=== PATIENT | female | born 1935 | race Caucasian/White ===

== ENCOUNTER → 2017-04-18 | Outpatient (CLI) | payer MEDICARE, BC | LOC: MC.RAD 10:55 | DX: Z12.31 Encounter for screening mammogram for malignant neoplasm of breast (principal); N63.11 Unspecified lump in the right breast, upper outer quadrant ==

== ENCOUNTER → 2017-04-27 | Outpatient (CLI) | payer MEDICARE, BC | LOC: MC.RAD 12:57 | DX: N63.10 Unspecified lump in the right breast, unspecified quadrant (principal) ==

== ENCOUNTER 2017-09-17 15:20 | Observation (INO) | payer MEDICARE, BC ==
[~2017-09-17] VITALS: Ht 170.3 cm; Wt 91.6 kg
[2017-09-17 15:47] LABS: BASO % 0.5 % (0.0-2.0); EOS # 0.2 (0.0-0.7); EOS % 2.5 % (0-4.0); GRAN # 3.6 (1.4-6.5); GRAN % 55.4 % (42.2-75.2); HEMATOCRIT 40.4 % (37.0-47.0); HEMOGLOBIN 13.5 g/dl (12.5-16.0); LYMPH # 2.2 (1.2-3.4); LYMPH % 34.1 % (20.0-51.0); MEAN CELL VOLUME 83 fl (80.0-100.0); MEAN CORPUSCULAR HEMOGLOBIN 28 pg (27.0-31.0); MEAN CORPUSCULAR HGB CONC 33 g/dl (33.0-37.0); MEAN PLATELET VOLUME 9.6 fl (7.4-10.4); MONO # 0.5 (0.1-0.6); MONO % 7.2 % (1.7-9.3); PLATELET COUNT 220 K/mm3 (130-400); RED BLOOD COUNT 4.86 M/mm3 (4.10-5.30); REDCELL DISTRIBUTION WIDTH-CV 13.7 % (11.5-14.5)
[2017-09-17 16:04] LABS: ALANINE AMINOTRANSFERASE 25 U/L (9-52); ALBUMIN 4.1 gm/dL (3.5-5.0); ALKALINE PHOSPHATASE 66 U/L (50-136); ANION GAP 12 mmol/L (7-16); AST,SGOT 29 U/L (15-37); BILIRUBIN,TOTAL 0.4 mg/dL (0.0-1.0); BLOOD UREA NITROGEN 13 mg/dL (7-17); CALCIUM 9.7 mg/dL (8.4-10.2); CARBON DIOXIDE 27 mmol/L (22-30); CHLORIDE 103 mmol/L (98-107); CREATININE, serum 0.81 mg/dL (0.52-1.25); GLUCOSE 103 mg/dL (74-106); POTASSIUM 3.7 mmol/L (3.4-5.0); SODIUM 142 mmol/L (137-145); TOTAL PROTEIN 7.5 gm/dL (6.4-8.2)
[2017-09-17 16:19] LABS: TROPONIN-I < 0.012 ng/mL (0.000-0.034)
[2017-09-17] MEDS ORDERED: ASPIRIN 81M81 MG/TA2 PO (16:45)
[2017-09-17] MEDS ORDERED: CALCIUM CARB W/1 TA1 PO (18:01)
[2017-09-17] MEDS ORDERED: LEVOXYL0.05 MG PO (18:01)
[2017-09-17] MEDS ORDERED: HYZAAR 12.5 MG-1 TAB PO (18:02)
[2017-09-17 20:09] VITALS: BP 130/73; PULSE 66; TEMP 98
[2017-09-18] VITALS (12 sets, daily range): BP systolic 112–186; BP diastolic 63–107; PULSE 61–109; TEMP 97.8–98.2
[2017-09-18 06:25] LABS: CHOLESTEROL RISK RATIO 3.9
[2017-09-18 06:31] LABS: TROPONIN-I 0.024 ng/mL (0.000-0.034)
[2017-09-18] MEDS ORDERED: TOPROL XL 25MG25 MG PO (19:41)
[2017-09-19 04:19] VITALS: BP 139/79; PULSE 79; TEMP 97.8
[2017-09-19 08:35] VITALS: BP 167/95; PULSE 85; TEMP 97.8
== END 2017-09-19 11:08 | disposition home or self-care (01) ==
LOC: COL.ER 15:20 → MEDICAL 17:45
PROVIDERS: Emergency Medicine
DX: R07.89 Other chest pain (principal); I10 Essential (primary) hypertension; E03.9 Hypothyroidism, unspecified; Z79.82 Long term (current) use of aspirin; Z85.828 Personal history of other malignant neoplasm of skin; Z82.49 Family history of ischemic heart disease and other diseases of the circulatory system
CPT/HCPCS: A9502; G0378; J1650; J2785; J7030

== ENCOUNTER → 2018-05-17 | Outpatient (CLI) | payer MEDICARE, BC ==
[~2018-05-17] MED LIST: ASPIRIN 81M81 MG/TA2 PO; CALCIUM CARB W/1 TA1 PO; HYZAAR 12.5 MG-1 TAB PO; LEVOXYL0.05 MG PO; TOPROL XL 25MG25 MG PO
== END ==
LOC: MC.RAD 08:57
DX: Z12.31 Encounter for screening mammogram for malignant neoplasm of breast (principal)

== ENCOUNTER → 2019-05-29 | Outpatient (CLI) | payer MEDICARE, BC | LOC: MC.RAD 16:39 | DX: Z12.31 Encounter for screening mammogram for malignant neoplasm of breast (principal) ==

== ENCOUNTER → 2020-06-17 | Outpatient (CLI) | payer MEDICARE, BC | LOC: MC.RAD 13:45 | DX: Z12.31 Encounter for screening mammogram for malignant neoplasm of breast (principal) ==

== ENCOUNTER → 2021-07-12 | Outpatient (CLI) | payer MEDICARE, BC | LOC: MC.RAD 10:12 | DX: Z12.31 Encounter for screening mammogram for malignant neoplasm of breast (principal) ==

== ENCOUNTER → 2022-07-28 | Outpatient (CLI) | payer MEDICARE, BC ==
[~2022-07-28] MED LIST changes: +MASON NATURAL2000 IU PO
== END ==
LOC: MC.RAD 11:14
DX: Z12.31 Encounter for screening mammogram for malignant neoplasm of breast (principal)